=== PATIENT | male | born 1945 | race Caucasian/White ===

== ENCOUNTER 2024-11-02 15:18 | Emergency (ER) | payer MEDICARE, SELFPAY ==
--- NOTE | ~2024-11-02 | XR_ITS ---
EXAMINATION: XR HAND 3 OR MORE VIEWS LEFT HISTORY: trauma COMPARISON: There are no prior studies available for comparison. FINDINGS: Three views of the left hand are submitted. Osseous mineralization is normal. There is a fracture of the distal tuft of the middle finger with overlying soft tissue injury. The remaining bones are intact. The joint spaces are maintained. XR/XR hand LT min 3V IMPRESSION: Fracture of the distal tuft of the middle finger with overlying soft tissue injury. Electronically signed by: Darion Serrano MD 11/02/2024 03:58 PM EDT
[2024-11-02 15:29] VITALS: BP 114/48; PULSE 63; RESP 18; TEMP 36.6; O2SAT 98; BMI 27.1
--- NOTE | 2024-11-02 15:34 | ED_ITS ---
HPI - General Adult General Chief complaint: Wound/Laceration Stated complaint: Finger lac Time Seen by Provider: 11/02/24 22:02 Source: patient Limitations: no limitations History of Present Illness ED Provider: Brandy Kinney PA-C HPI narrative: 79-year-old male presents with left 3rd finger laceration. Patient states he was using a table saw and subsequently lacerated the tip of his finger. He also sustained a laceration to the 4th digit on the same hand. Neurovascularly intact. Related Data Home Medications ?Medication ?Instructions ?Recorded ?Confirmed allopurinol 100 mg tablet 100 mg PO DAILY 11/09/24 amlodipine 2.5 mg tablet 2.5 mg PO DAILY 11/09/24 budesonide-formoterol HFA 160 inhalation 11/09/24 mcg-4.5 mcg/actuation aerosol inhaler (Symbicort) duloxetine 60 mg capsule,delayed 60 mg PO DAILY 11/09/24 release ergocalciferol (vitamin D2) 1,250 2,500 mcg PO QWEEK 11/09/24 mcg (50,000 unit) capsule fluticasone propionate 50 intranasal 11/09/24 mcg/actuation nasal spray,suspension ketoconazole 2 % topical cream 1 appl topical 11/09/24 momelotinib 200 mg tablet (Ojjaara) 200 mg PO DAILY 11/09/24 pantoprazole 40 mg tablet,delayed 40 mg PO DAILY 11/09/24 release valsartan 160 mg tablet 160 mg PO DAILY 11/09/24 vonoprazan 20 mg tablet (Voquezna) 20 mg PO DAILY 11/09/24 Allergies Allergy/AdvReac Type Severity Reaction Status Date / Time No Known Allergies Allergy Verified 11/15/24 14:05 Review of Systems Review of Systems: Yes all other systems are reviewed and are negative Constitutional: Constitutional: Denies fatigue and Denies fever(s) Integumentary/Breasts: Skin/Breast: Reports wounds Endocrine: Endocrine: Denies fatigue PMFSH Past Medical History Attestation statement: The following information was validated with the patient. 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 Physical Exam ED Vital Signs: Vital Signs - 24 hr 11/02/24 15:29 11/02/24 22:21 Temperature 98 F 97.2 F Pulse Rate 63 68 Respiratory Rate 18 16 Blood Pressure 114/48 L 133/56 L Pulse Oximetry 98 99 BMI result Body Mass Index 27.1 Const Other: Alert Orientation/consciousness: patient oriented x3 Resp Effort & Inspection: normal respiratory effort Cardio Other: Normal peripheral perfusion Skin Other: Warm dry no rash Neuro General: patient oriented x3, gait normal, no focal motor deficits and CN's II- XI intact bilaterally Extrem Other: Crush injury to superior aspect of the left 3rd digit, expanding across the nail is irregular and macerated tissue. Minimally bleeding. Second laceration noted to 2nd digit over the pad, minimally bleeding is linear. Psych Other: Cooperative Course Course Course Narrative: RME, this is a rapid medical exam performed by Howard Munoz please refer to primary provider for complete H&P- 79 year old male presents for evaluation of left 3rd finger laceration from a table saw. He is unsure of his last tetanus but is attempting to find out from his PCP. Plan for x-rays to rule out osseous injury.He has a 3cm laceration/ avulsion to the tip of the 3rd finger. A smaller 1cm laceration to 2nd digit. Medications Administered Discontinued Medications Generic Name Dose Route Start Last Admin Trade Name Freq PRN Reason Stop Dose Admin Cephalexin HCl 500 mg 11/03/24 00:14 11/03/24 00:32 Cephalexin 500 Mg Capsule PO 11/03/24 00:15 500 mg ONCE ONE Administration Lidocaine HCl 30 ml 11/02/24 22:53 11/02/24 23:01 Lidocaine Hcl 1 % 10 Ml Vial INFILTRATI 11/02/24 22:54 30 ml ONCE ONE Administration Procedures Laceration Laceration 1: Site: hand Side (If applicable): left Size (cm): 2 Description: irregular and contaminated Depth: simple, single layer Local Anesthetic: lidocaine 1% Amount of anesthesia used (mL): 3 Pre-repair: irrigated extensively Skin layer closed with: nylon Size (cm): 5-0 Number of sutures: 7 Technique: simple, interrupted Laceration 2: Site: hand Side (If applicable): left Size (cm): 1 Description: linear Depth: simple, single layer Local Anesthetic: lidocaine 1% Amount of anesthesia used (mL): 3 Pre-repair: irrigated extensively Skin layer closed with: nylon Size (cm): 5-0 Number of sutures: 3 Technique: simple, interrupted Medical Decision Making Medical Decision Making MDM Narrative: 79-year-old male presents with left 3rd finger laceration. Patient states he was using a table saw and subsequently lacerated the tip of his finger. He also sustained a laceration to the 4th digit on the same hand. Neurovascularly in tact. No relevant chronic issues History: Per patient I have considered the following differential diagnoses: Fracture, dislocation, crush injury, laceration Plan: The lacerations will require repair, x-ray obtained of the finger there was a tuft fracture, is an open fracture we will place on antibiotics and update the tetanus. I have independently reviewed the following tests: X-ray left hand: XR/XR hand LT min 3V IMPRESSION: Fracture of the distal tuft of the middle finger with overlying soft tissue injury. Discharge Plan Discharge Clinical Impression: Laceration, Open fracture of tuft of distal phalanx of finger Patient Disposition: Home, Self-Care Instructions: Finger Fracture (ED), Finger Laceration (ED) Additional Instructions: You sustained a tuft fracture of the left 3rd digit, with an associated laceration. You also sustained a laceration of the 4th left digit. See home care instructions. The sutures can be removed in 7 days, you can return to the emergency department for removal or go to your primary care provider. Take the cephalexin as directed, the fracture you sustained is considered an open fracture. Call the hand surgeon for follow up, call tomorrow to make an appointment. Watch for signs of infection which would include redness, swelling, pus draining from either site or fever. Prescriptions: No Action valsartan 160 mg tablet 160 mg PO DAILY budesonide-formoterol [Symbicort] 160-4.5 mcg/actuation HFA aerosol inhaler inhalation Voquezna 20 mg tablet 20 mg PO DAILY ergocalciferol (vitamin D2) 1,250 mcg (50,000 unit) capsule 2,500 mcg PO QWEEK Ojjaara 200 mg tablet 200 mg PO DAILY amlodipine 2.5 mg tablet 2.5 mg PO DAILY ketoconazole 2 % cream 1 appl topical duloxetine 60 mg capsule,delayed release(DR/EC) 60 mg PO DAILY allopurinol 100 mg tablet 100 mg PO DAILY pantoprazole 40 mg tablet,delayed release (DR/EC) 40 mg PO DAILY fluticasone propionate 50 mcg/actuation spray,suspension intranasal Referrals: Gricelda Jaime MD [Physician] - (open tuft fx left finger) Interventions: ED Discharge Assessment Last Done: 11/03/24 00:35 Discharge Date/Time: 11/03/24 00:35 Print Language: Croatian
[2024-11-02 22:21] VITALS: BP 133/56; PULSE 68; RESP 16; TEMP 36.2; O2SAT 99
[2024-11-02] MEDS: Lidocaine HCl 1 % 10 ML VIAL 30 ML INFILTRATI (23:01)
[2024-11-03 00:27] VITALS: BP 130/54; PULSE 70; RESP 18; TEMP 36.8; O2SAT 96
[2024-11-03] MEDS: cephALEXin 500 MG CAPSULE PO (00:32)
[2024-11-03 00:35] VITALS: BP 130/54; PULSE 70; RESP 18; TEMP 36.8; O2SAT 96
== END 2024-11-03 00:35 | disposition home or self-care (01) ==
PROVIDERS: Emergency Provider Emergency Medicine Emergency Medical Services; PCP Family Medicine
DX: S61.213A Laceration without foreign body of left middle finger without damage to nail, initial encounter (principal); S62.633A Displaced fracture of distal phalanx of left middle finger, initial encounter for closed fracture; M79.642 Pain in left hand; W31.2XXA Contact with powered woodworking and forming machines, initial encounter; Y93.9 Activity, unspecified; Y92.9 Unspecified place or not applicable; Y99.8 Other external cause status; Z79.899 Other long term (current) drug therapy
CPT/HCPCS: 12042; 73130; 99284; J2003

== ENCOUNTER → 2024-11-02 15:35 | Outpatient (BNV) | payer SELFPAY | PROVIDERS: PCP Family Medicine; Visit Provider Radiology Diagnostic Radiology | DX: S62.633B Displaced fracture of distal phalanx of left middle finger, initial encounter for open fracture (principal) | CPT/HCPCS: 73130 ==

== ENCOUNTER 2024-11-08 09:44 | Outpatient (REF) | payer MEDICARE, SELFPAY | END 2024-11-08 09:45 | disposition home or self-care (01) | LOC: HO.HOSX 09:44 | PROVIDERS: Visit Provider Orthopaedic Surgery | DX: Z13.89 Encounter for screening for other disorder (principal) ==

== ENCOUNTER 2024-11-09 09:32 | Outpatient (AMB) | payer MEDICARE, SELFPAY ==
--- NOTE | 2024-11-09 09:52 | A.OFFVIS_ITS ---
Vital Signs 11/09/24 10:00 Height 5 ft 6 in Weight 156 lb BMI 25.2 Intake Visit Reasons: FC-tuft fracture of the left 3rd digit, LT-11/02/24 Intake Note: Jus is a 79 year old right hand dominant male who resents today as a new patient for a fracture care visit for his left 3rd finger s/p cutting it with a table saw DOI: 11/02/24 Per ED note patient has a 3 cm laceration/avulsion to the tip of the 3rd left finger and a small laceration to the left 2nd finger as well. Right hand X-Ray done at [facility] on 11/02/24 IMPRESSION: Fracture of the distal tuft of the middle finger with overlying soft tissue injury. He received 12 sutures, splinted and referred to orthopedic. Currently states he has pain if he bangs it against any surface. Hx of a tendon rupture on his DIP of left middle finger about 3 yrs ago. He is having a little tingling in his middle finger that he did not have before. Allergies No Known Allergies Allergy (Verified 11/09/24 09:56) HPI HPI FC-tuft fracture of the left 3rd digit, LT-11/02/24: Details: Jus is a 79 year old right hand dominant man who presents for a left middle finger laceration & fracture, from a table saw injury, DOI: 11/02/24. He was seen in the ED where this was sutured, and given Abx. He complains of pain in his finger, primarily when bumped against a surface. He also complains of some new tingling in his middle finger, which began following his injury. He reports having a middle finger tendon rupture in ~2021. He says he is immunocompromised, with a Hx of BCC & prostate cancer. 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 Review of Systems Const All systems reviewed & are unremarkable except as noted in HPI and below Physical Exam Vital Signs: BMI result Body Mass Index 25.2 Const General: cooperative, healthy appearing and no acute distress Orientation/consciousness: patient oriented x3 HEENT Head: Yes normocephalic and Yes atraumatic Eyes EOM: EOMs intact bilaterally Resp Effort & Inspection: normal respiratory effort and able to speak in complete sentences Cardio Jugular venous distension: no JVD Skin General skin exam: turgor normal Rashes: no rashes Neuro General: patient oriented x3 Extrem Other: Evaluation of Left Upper Extremity: The patient is alert, oriented, and in no acute distress Table saw injury to the ulnar tip of the left middle finger. He is missing some of the distal and ulnar aspect of the nail plate and presumably the nail bed. The wound is sutured closed and appears to be covering the end of the finger, though there is a significant amount of dried blood as well. Regarding the left index finger he has a 1.2 cm transverse laceration at the tip of the index finger. No nail involvement Cap refill appears to be brisk. He had some mild stiffness, but was able to bring his fingers close to a fist and back into extension in clinic. He does have an old mallet deformity to the middle finger. This is not something caused by this injury. Radiographs: 3 views of the left hand were taken and viewed by me today in clinic. They show a fracture with loss of the ulnar aspect of the tuft of the left middle finger distal phalanx. I do not see any bony involvement of the tip of the index finger. Psych Appearance: grossly normal Affect: normal affect Attitude: cooperative Office Procedures AMB Fracture Care Details: Fracture care distal phalanx [id number] Fracture Billing Code: Fracture Billing Code Assessment & Plan Assessment & Plan (1) Open fracture of distal phalanx of left middle finger: Code(s): S62.633B - Displaced fracture of distal phalanx of left middle finger, initial encounter for open fracture Category: Medical (2) Laceration of left middle finger: Code(s): S61.213A - Laceration without foreign body of left middle finger without damage to nail, initial encounter Category: Medical (3) Laceration of left index finger: Code(s): S61.211A - Laceration without foreign body of left index finger without damage to nail, initial encounter Category: Medical Plan Assessment & Plan: 1. Left middle finger distal phalanx ulnar tuft fracture, open From a tablesaw injury, DOI: 11/02/24 Sutured in ED same day 2. Left index fingertip laceration, From a tablesaw injury, DOI: 11/02/24 Sutured in ED same day I educated him about these conditions I discussed operative and non-operative treatment options I recommend we manage this non-operatively, and he is in agreement. If he does not develop full soft tissue coverage at his middle fingertip, he may require surgery. He expressed understanding Finish his antibiotics. I explained the signs and symptoms of infection, if the patient develops any new or worsening erythema, drainage, pain, or warmth they should contact the clinic or attend the ED. I discussed wound care, he can clean his injuries with 1/2 strength Hydrogen peroxide & water, and apply a small amount of topical Abx. He can start washing the wounds in the shower with soap and water on Thursday. He will perform gentle ROM exercises at home He should avoid any underwater activities at this time Follow up next week with for a wound check and possible removal of a some sutures, particularly from the index finger. Most sutures in the middle finger should stay in place until almost 3 weeks. Follow up with me in 2 weeks for a wound check, and likely removal of remaining sutures Scribed for Gricelda Jaime MD by Armando Perez, medical laboratory scientist, on 11/09/24 at 10:00 AM, EST. Orders: Orders XR hand LT min 3V Today M79.642 - Pain in left hand Coding Level of Care Code New Pt Level 4 (82041) Diagnoses Open fracture of distal phalanx of left middle finger S62.633B Laceration of left middle finger S61.213A Laceration of left index finger S61.211A CPT Codes Fracture Care - Fracture Billing Code: Fracture Billing Code ([id number])
[2024-11-09 10:00] VITALS: BMI 25.2
== END 2024-11-09 10:41 | disposition home or self-care (01) ==
LOC: HO.HOS 09:32
PROVIDERS: PCP Family Medicine; Visit Provider Orthopaedic Surgery
DX: S62.633B Displaced fracture of distal phalanx of left middle finger, initial encounter for open fracture (principal); S61.213A Laceration without foreign body of left middle finger without damage to nail, initial encounter; S61.211A Laceration without foreign body of left index finger without damage to nail, initial encounter
CPT/HCPCS: 99203

== ENCOUNTER → 2024-11-09 09:40 | Outpatient (BNV) | payer MEDICARE, SELFPAY | PROVIDERS: Visit Provider Radiology Diagnostic Radiology | DX: S62.633A Displaced fracture of distal phalanx of left middle finger, initial encounter for closed fracture (principal) | CPT/HCPCS: 73130 ==

== ENCOUNTER 2024-11-09 12:05 | Outpatient (REF) | payer MEDICARE, SELFPAY ==
--- NOTE | ~2024-11-09 | XR_ITS ---
EXAMINATION: XR HAND 3 OR MORE VIEWS LEFT HISTORY: M79.642 - Pain in left hand COMPARISON: Comparison is made with the prior examination dated 11/02/2024. FINDINGS: Four views of the left hand are submitted. Osseous mineralization is normal. Again seen is a fracture of the distal tuft of the middle finger. There is been no significant change from the prior study. The joint spaces are preserved. The soft tissues are unremarkable. XR/XR hand LT min 3V IMPRESSION: Fracture of the distal tuft of the middle finger. Electronically signed by: Darion Serrano MD 11/09/2024 12:36 PM EDT
== END 2024-11-09 12:06 | disposition home or self-care (01) ==
LOC: HO.HOSX 12:05
PROVIDERS: Visit Provider Orthopaedic Surgery
DX: S62.633B Displaced fracture of distal phalanx of left middle finger, initial encounter for open fracture (principal); W27.0XXD Contact with workbench tool, subsequent encounter
CPT/HCPCS: 26750; 73130; 99202

== ENCOUNTER 2024-11-15 13:57 | Outpatient (AMB) | payer MEDICARE, SELFPAY ==
--- NOTE | 2024-11-15 14:02 | MHC.OFFVIS ---
Vital Signs 11/15/24 14:04 Height 5 ft 6 in Weight 156 lb BMI 25.2 Handedness Right Intake Visit Reasons: OV- Left MF fx, LT IF lac DOI 11/02/24 Intake Note: Jus is a 79 year old right hand dominant male who presents today for a follow up and wound check for his open fracture of distal phalanx of left middle finger, laceration of left middle and left index finger s/p table saw injury DOI: 11/02/24. Patient reports he has pain if he bumps his fingers but other wolfe they feel okay. Expresses mild numbness at the tip of his index and middle finger. His middle finger appears white around his incison. Allergies No Known Allergies Allergy (Verified 11/15/24 14:05) HPI HPI OV- Left MF fx, LT IF lac DOI 11/02/24: Details: Jus is a 79 year old right hand dominant male who presents today for a follow up and wound check for his open fracture of distal phalanx of left middle finger, laceration of left middle and left index finger s/p table saw injury DOI: 11/02/24. Patient reports he has pain if he bumps his fingers but other wolfe they feel okay. Expresses mild numbness at the tip of his index and middle finger. His middle finger appears white around his incison. 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 Review of Systems Const All systems reviewed & are unremarkable except as noted in HPI and below Physical Exam Vital Signs: BMI result Body Mass Index 25.2 Const General: cooperative, healthy appearing and no acute distress Orientation/consciousness: patient oriented x3 HEENT Head: Yes normocephalic and Yes atraumatic Eyes EOM: EOMs intact bilaterally Resp Effort & Inspection: normal respiratory effort and able to speak in complete sentences Cardio Jugular venous distension: no JVD Skin General skin exam: turgor normal Rashes: no rashes Neuro General: patient oriented x3 Extrem Other: Evaluation of Left Upper Extremity: The patient is alert, oriented, and in no acute distress Table saw injury to the ulnar tip of the left middle finger. He is missing some of the distal and ulnar aspect of the nail plate and presumably the nail bed. The wound is sutured closed and appears to be covering the end of the finger, though there is a significant amount of dried blood as well. Regarding the left index finger he has a 1.2 cm transverse laceration at the tip of the index finger. No nail involvement Cap refill appears to be brisk. He had some mild stiffness, but was able to bring his fingers close to a fist and back into extension in clinic. He does have an old mallet deformity to the middle finger. This is not something caused by this injury. Psych Appearance: grossly normal Affect: normal affect Attitude: cooperative Assessment & Plan Assessment & Plan (1) Open fracture of distal phalanx of left middle finger: Code(s): S62.633B - Displaced fracture of distal phalanx of left middle finger, initial encounter for open fracture Category: Medical (2) Laceration of left middle finger: Code(s): S61.213A - Laceration without foreign body of left middle finger without damage to nail, initial encounter Category: Medical (3) Laceration of left index finger: Code(s): S61.211A - Laceration without foreign body of left index finger without damage to nail, initial encounter Category: Medical Plan Assessment & Plan: 1. Left middle finger distal phalanx ulnar tuft fracture, open From a tablesaw injury, DOI: 11/02/24 Sutured in ED same day 2. Left index fingertip laceration, From a tablesaw injury, DOI: 11/02/24 Sutured in ED same day I educated him about these conditions I discussed operative and non-operative treatment options I recommend we manage this non-operatively, and he is in agreement. If he does not develop full soft tissue coverage at his middle fingertip, he may require surgery. He expressed understanding Finish his antibiotics. I explained the signs and symptoms of infection, if the patient develops any new or worsening erythema, drainage, pain, or warmth they should contact the clinic or attend the ED. I discussed wound care, he can continue washing with soap and water in the sink or the shower, but no submerging He will perform gentle ROM exercises at home He should avoid any underwater activities at this time All but 1 suture removed from the index finger, anticipate suture removal at next week's appointment of the suture and the sutures of the middle finger Coding Level of Care Code Est Pt Level 3 (00318) Diagnoses Open fracture of distal phalanx of left middle finger S62.633B Laceration of left middle finger S61.213A Laceration of left index finger S61.211A
[2024-11-15 14:04] VITALS: BMI 25.2
== END 2024-11-15 14:46 | disposition home or self-care (01) ==
LOC: HO.HOS 13:57
PROVIDERS: PCP Family Medicine
DX: S62.633B Displaced fracture of distal phalanx of left middle finger, initial encounter for open fracture (principal); S61.213A Laceration without foreign body of left middle finger without damage to nail, initial encounter; S61.211A Laceration without foreign body of left index finger without damage to nail, initial encounter
CPT/HCPCS: 99213

== ENCOUNTER → 2024-11-15 13:57 | Outpatient (BNVA) | payer MEDICARE, SELFPAY | PROVIDERS: PCP Family Medicine | DX: S62.633D Displaced fracture of distal phalanx of left middle finger, subsequent encounter for fracture with routine healing (principal); S61.213D Laceration without foreign body of left middle finger without damage to nail, subsequent encounter; S61.211D Laceration without foreign body of left index finger without damage to nail, subsequent encounter | CPT/HCPCS: 99212 ==

== ENCOUNTER 2024-11-22 14:06 | Outpatient (REF) | payer MEDICARE, SELFPAY ==
--- NOTE | ~2024-11-22 | XR_ITS ---
EXAMINATION: XR HAND, LEFT CLINICAL INFORMATION: M79.642 - Pain in left hand COMPARISON: 11/09/2024, 11/02/2024. TECHNIQUE: PA, lateral, and oblique views of the left hand. FINDINGS: Bandaging material overlies the second and third digits distally. Redemonstration of an avulsion fracture of the distal tuft of the third digit, distal phalanx. Appearance is unchanged. No additional fractures or focal bony abnormalities. 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 Mild joint space narrowing second MCP joint. Negative ulnar variance noted. Soft tissues otherwise normal. XR/XR hand LT min 3V IMPRESSION: No significant change in the distal tuft fracture of the third digit. Electronically signed by: Markus Purcell MD 11/23/2024 12:32 PM EDT
--- OUTSIDE RECORDS SUMMARY | 2024-11-22 16:54 | XMS_ITS | Encounter Summary ---
Author Organization [facility], Address [address] [place] [address] Phone Care Team Providers Care Stone Cleaner Name Role Phone Crystal Lowry MD Primary Care Provider [phone] Encounter Details Date Type Department Care Team (Late st Contact Info) Description 04/28/2024 Documentation Only [facility], [address] [place] [phone] Juan Diego [place], [place] [address] [place] [phone] Social History Tobacco Use Types Packs/Day Years Used Date Smoking Tobacco: Never Assessed Sex and Gender Information Value Date Recorded Sex Assigned at Male 07/29/2024 3:22 PM EST Legal Sex Male 11:37 AM EDT Gender Identity Male 07/29/2024 3:22 PM EST Sexual Orientation Not on file documented as of this encounter Plan of Treatment Not on file documented as of this encounter Visit Diagnoses Not on filedocumented in this encounter Care Teams Stone Cleaner Relationship Specialty Start Date End Date Crystal Lowry MD [address] [place] [phone] PCP - General Family Medicine 04/28/24 documented as of this encounter
--- OUTSIDE RECORDS SUMMARY | 2024-11-22 16:54 | XMS_ITS | Clinical Summary ---
Author Organization [facility], Address [address]HA[address] [place] [phone] Phone Care Team Providers Care Associate Civil Engineer Name Role Phone Crystal Lowry MD Primary Care Provider Allergies No known active allergies Medications allopurinol (ZYLOPRIM) 100 MG tablet Take 100 mg by mouth 1 (one) time each day Active amLODIPine (NORVASC) 2.5 MG tablet Take 2.5 mg by mouth 1 (one) time each day Active ARIPiprazole (ABILIFY) 5 MG tablet Take 1 tablet by mouth in the morning. 4 Active DULoxetine (CYMBALTA) [address] capsule TAKE 1 CAPSULE BY MOUTH EVERY DAY WITH 60MG FOR TOTAL 90MG 4 Active Docusate Sodium (DSS) 100 MG capsule Take 200 mg by mouth in the morning. Active DULoxetine (CYMBALTA) [address] capsule TAKE 1 CAPSULE BY MOUTH EVERY DAY TAKE ALONG WITH THE 30 MG CAP 4 Active ergocalciferol 1.25 MG (84120 UT) capsule TAKE 2 CAPSULES BY MOUTH WEEKLY 4 Active Momelotinib Dihydrochloride 200 MG tablet Take 1 tablet by mouth in the morning. 4 Active Active Problems Problem Noted Date Diagnosed Date Stage 3a chronic kidney disease 08/05/2024 Essential hypertension 04/07/2023 Overview (08/05/2024): Last Assessment & Plan: Hemodynamically stable. Continue home medications. Social History Tobacco Use Types Packs/Day Years Used Date Smoking Tobacco: Never Assessed Sex and Gender Information Value Date Recorded Sex Assigned at Male 07/29/2024 3:22 PM EST Legal Sex Male 11:37 AM EDT Gender Identity Male 07/29/2024 3:22 PM EST Sexual Orientation Not on file Plan of Treatment Health Maintenance Due Date Last Done Comments Influenza Vaccine (#1) 2024 05/05/2019 Pneumococcal Vaccine: 65+ Years Completed 03/05/2020, 01/27/2016, 09/15/2013, Additional history exists Hepatitis B Vaccine Aged Out No longe r eligible based on patient's age to complete this topic Insurance [facility] Care Teams Associate Civil Engineer Relationship Specialty Start Date End Date Crystal Lowry MD [address] [place] [phone] PCP - General Family Medicine 04/28/24
--- OUTSIDE RECORDS SUMMARY | 2024-11-22 16:54 | XMS_ITS | Encounter Summary ---
Author Organization [facility], Address [address] [place] [address] Phone Care Team Providers Care Glass Grinder Name Role Phone Crystal Lowry MD Primary Care Provider [phone] Encounter Details Date Type Department Care Team (Late st Contact Info) Description 08/05/2024 Documentation Only [facility], [address] [place] [phone] Shelli Trevino [address] [place] [phone] Social History Tobacco Use Types Packs/Day Years [...] on filedocumented in this encounter Care Teams Glass Grinder Relationship Specialty Start Date End Date Crystal Lowry MD [address] [place] [phone] PCP - General Family Medicine 04/28/24 documented as of this encounter
== END 2024-11-22 14:07 | disposition home or self-care (01) ==
LOC: HO.HOSX 14:06
DX: M79.642 Pain in left hand (principal); S62.633D Displaced fracture of distal phalanx of left middle finger, subsequent encounter for fracture with routine healing
CPT/HCPCS: 73130; 99212

== ENCOUNTER 2024-11-22 14:11 | Outpatient (AMB) | payer MEDICARE, SELFPAY ==
--- NOTE | 2024-11-22 14:16 | A.OFFVIS_ITS ---
Vital Signs 11/22/24 14:24 Height 5 ft 6 in Weight 156 lb BMI 25.2 Handedness Right Intake Visit Reasons: OV- Left MF fx, LT IF lac DOI 11/02/24 Intake Note: Jus is a 79 year old right hand dominant male who presents today for a follow up and wound check for his open fracture of distal phalanx of left middle finger, laceration of left middle and left index finger s/p table saw injury DOI: 11/02/24. Patient reports his fingers have been feeling a little better however the tips are fourdrinier machine tender. He has been doing his daily dressings and states he had no complications with this. He says if he brushes against his finger he feels some tingling. Left middle finger appears macerated. Allergies No Known Allergies Allergy (Verified 11/22/24 14:23) HPI HPI OV- Left MF fx, LT IF lac DOI 11/02/24: Details: Jus is a 79 year old right hand dominant male who presents today for a follow up and wound check for his open fracture of distal phalanx of left middle finger, laceration of left middle and left index finger s/p table saw injury DOI: 11/02/24. Patient reports his fingers have been feeling a little better however the tips are fourdrinier machine tender. He has been doing his daily dressings and states he had no complications with this. He says if he brushes against his finger he feels some tingling. Left middle finger appears macerated. 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 Review of Systems Const All systems reviewed & are unremarkable except as noted in HPI and below Physical Exam Vital Signs: BMI result Body Mass Index 25.2 Const General: cooperative, healthy appearing and no acute distress Orientation/consciousness: patient oriented x3 HEENT Head: Yes normocephalic and Yes atraumatic Eyes EOM: EOMs intact bilaterally Resp Effort & Inspection: normal respiratory effort and able to speak in complete sentences Cardio Jugular venous distension: no JVD Skin General skin exam: turgor normal Rashes: no rashes Neuro General: patient oriented x3 Extrem Other: Evaluation of Left Upper Extremity: The patient is alert, oriented, and in no acute distress Table saw injury to the ulnar tip of the left middle finger. He is missing some of the distal and ulnar aspect of the nail plate and presumably the nail bed. The wound is sutured closed and appears to be covering the end of the finger, despite slight maceration Regarding the left index finger he has a 1.2 cm transverse laceration at the tip of the index finger. No nail involvement Cap refill appears to be brisk. He had some mild stiffness, but was able to bring his fingers close to a fist and back into extension in clinic. He does have an old mallet deformity to the middle finger. This is not something caused by this injury. Psych Appearance: grossly normal Affect: normal affect Attitude: cooperative Assessment & Plan Assessment & Plan (1) Open fracture of distal phalanx of left middle finger: Code(s): S62.633B - Displaced fracture of distal phalanx of left middle finger, initial encounter for open fracture Category: Medical (2) Laceration of left middle finger: Code(s): S61.213A - Laceration without foreign body of left middle finger without damage to nail, initial encounter Category: Medical (3) Laceration of left index finger: Code(s): S61.211A - Laceration without foreign body of left index finger without damage to nail, initial encounter Category: Medical Plan Assessment & Plan: 1. Left middle finger distal phalanx ulnar tuft fracture, open From a tablesaw injury, DOI: 11/02/24 Sutured in ED same day 2. Left index fingertip laceration, From a tablesaw injury, DOI: 11/02/24 Sutured in ED same day I educated him about these conditions I discussed operative and non-operative treatment options I recommend we manage this non-operatively, and he is in agreement. If he does not develop full soft tissue coverage at his middle fingertip, he may require surgery. He expressed understanding I explained the signs and symptoms of infection, if the patient develops any new or worsening erythema, drainage, pain, or warmth they should contact the clinic or attend the ED. I discussed wound care, he can continue washing with soap and water in the sink or the shower, but no submerging He will perform gentle ROM exercises at home He should avoid any underwater activities at this time Sutures removed today Follow-up in 2 weeks for reassessment, sooner with any acute concerns Orders: Orders XR hand LT min 3V 11/22/24 M79.642 - Pain in left hand Coding Level of Care Code Global (89888) Diagnoses Open fracture of distal phalanx of left middle finger S62.633B Laceration of left middle finger S61.213A Laceration of left index finger S61.211A
[2024-11-22 14:24] VITALS: BMI 25.2
--- OUTSIDE RECORDS SUMMARY | 2024-11-22 16:59 | XMS_ITS | Clinical Summary ---
Author Organization [facility] Address [address] [place] [address] Care Team Providers Care Spray Drier Operator Name Role Phone Unavailable Primary Care Provider Unavailabl e Source Comments Please note that some or all of the patient's information could have additional privacy protections. State laws allow health care providers to render certain types of treatment to minors without parental consent. Please do not assume that this information can be shared solely by obtaining just the consent of the patient's parent/guardian. Please determine if all or part of the patient's care was rendered without parent/guardian involvement. And, if so, obtain the minor's consent prior to disclosure.[facility] Immunizations Immunization Administration Dates Next Due Moderna Sars-cov-2 Vaccination 11/09/2020 Social History Tobacco Use Types Packs/Day Years Used Date Smoking Tobacco: Never Assessed Sex and Gender Information Value Date Recorded Sex Assigned at Not on file Legal Sex Male 8:24 AM EDT Gender Identity Not on file Sexual Orientation Not on file Plan of Treatment Health Maintenance Due Date Last Done Comments DTaP/TDAP/TD VACCINES (1 - Tdap) 1952 ADOLESCENT HIV SCREENING 1958 COVID-19 Vaccine (2 - 2023-2 5 season) 2024 11/09/2020 INFLUENZA (#1) 2024 NIRSEVIMAB VACCINES UNDER 8 MONTHS Aged Out No longer eligible b ased on patient's age to complete this topic Insurance BLUE CROSS PART A AND B
--- OUTSIDE RECORDS SUMMARY | 2024-11-22 17:00 | XMS_ITS | Data Portability ---
Author Organization [place] [facility], Allergy Address [address] [address] Care Team Providers Care Sales/Marketing Name Role Phone DOMINGUEZANTONIO Primary Care Provider Assessment Encounter Date Assessment Date Assessment LastModified by Organization Details LastModified Time 10/18/2024 10/18/2024 79-year-old male presents for evaluation of right otalgia. Otologic exam demonstrates right external auditory canal is erythematous with purulent otorrhea, suctioned today. Right TM is generally thickened with loss of landmarks. Recommend topical CiproDex twice daily for 14 days. Reviewed drop administration and water precautions. Will send intranasal ipratropium bromide for his chronic anterior rhinorrhea, as this has been beneficial in the past. Patient will return for revaluation in 2-3 weeks to assess for infection resolution. Patient agrees with plan. 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 He reports symptoms resolved with CiproDex. Otologic exam demonstrates TMs are intact with well-aerated middle ear spaces. External auditory canals are without purulence or edema. Recommend follow up for annual audiometric testing, sooner with concerns. [email or web address] Not available 11/04/2024 09:27:37 Plan of Treatment Reminders Order Date Submit Date Provider Last Modified By Organization Details Last Modified Time Details Appointments None recorded. Lab None recorded. Referral None recorded. Procedures None recorded. Surgeries None recorded. Imaging None recorded. Medication Orders ciprofloxac in 0.3 %-dexametha sone 0.1 % ear drops,suspe nsion 2024 025 [facility][id number], [address] [place], [address], 5 11:24:31 ipratropium bromide 21 mcg (0.03 %) nasal spray 2024 025 [id number], [address] [place], [address], 5 11:24:31 Patient TargetsNo targets recorded. Patient InstructionsNo instructions recorded. Reason for Referral None Reported. Problems Name Problem SNOMED Code Status Onset Date Resolution Date Notes Provider Name and Address Organization Details Recorded Time Impacted cerumen of bilateral ears 79920105199 58442 Active 2020 Impacted cerumen, bilateral ; Note: Date Diagnosed : 11/13/2020 2:37 PM (H61.23) Not Available [facility] 4 03:21:55 Sensorine ural hearing loss of bilateral ears 207723599 Active 2020 Sensorine ural hearing loss, bilateral ; Note: Date Diagnosed : 11/13/2020 2:37 PM (H90.3) Not Available [facility] 4 03:21:55 Acute infective otitis externa 871730984 Active 2024 JOSEY GALLO PA-C [address] [facility],[place] [address], [place], [phone] , [place] [facility] 5 11:22:43 Anterior rhinorrhe a 785683923 Active 2024 JOSEY GALLO PA-C [address] [facility] [address], [place], [phone] , [place] [facility] [place] [facility] 5 11:23:51 Vasomotor rhinitis 6257022 Active 2024 JOSEY GALLO PA-C [address] [facility] [address], [place], [phone] , [place] - [facility] [place] [facility] 5 11:24:02 Chronic rhinitis 71723113 Active 2024 JOSEY GALLO PA-C [address] [place] [address], [place], [phone] , [place] [facility] 11:24:02 Problem Notes None recorded. Medical Equipment None Reported. Allergies No known drug allergies Medications Name Sig Start Date Stop Date Status Note LastModified by Organization Details LastModified Time acetamino phen 325 mg tablet 10/17 completed Medicati on ID: [id number] B rand Name: acetamin ophen Se nd Method: E-Prescr ibed Sub s Allowed: subs OK Speci al Instruct ion: TAKE 2 TABLETS BY MOUTH EVERY 6 HOURS NEEDED FOR PAIN Med icationG enericNa me: acetamin ophen Not Available Not Available Not Available prednison e 10 mg tablet TAKE 1 TABLET BY MOUTH VERY 48 HOURS WITH FOOD 10/18 completed Not Available Not Available Not Available doxycycli ne hyclate 100 mg capsule TAKE ONE PILL TWICE DAILY WITH FOOD AND WATER X 5 DAYS. 10/18 completed Not Available Not Available Not Available sucralfat e 1 gram tablet TAKE 1 TABLET BY MOUTH ON AN EMPTY STOMACH 2-4 TIMES DAILY NEEDED 11/03 completed Not Available Not Available Not Available fluoroura cil 5 % topical cream 10/17 completed Medicati on ID: [id number] B rand Name: fluorour acil Sen d Method: E-Prescr ibed Sub s Allowed: subs OK Speci al Instruct ion: APPLY TO AFFECTED AREA TWICE A DAY FOR 14 21 DAYS, WASH HANDS AFTER APPLYING Medicat ionGener icName: fluorour acil Not Available Not Available Not Available amlodipin e 2.5 mg tablet 2.5 mg every 24 hours by oral route. active Not Available Not Available No t Available allopurin ol 100 mg tablet TAKE 1 TABLET BY MOUTH EVERY DAY active Not Available Not Available No t Available magnesium oxide 400 mg (241.3 mg magnesium ) tablet TAKE 1 TABLET BY MOUTH EVERY DAY 11/03 completed Not Available Not Available Not Available pravastat in 10 mg tablet 10 mg every 24 hours by oral route. active Not Available Not Available No t Available clindamyc in 1 % topical gel 10/18 completed Medicati on ID: [id number] B rand Name: clindamy pedro phosphat e Send Method: E-Prescr ibed Sub s Allowed: subs OK Speci al Instruct ion: APPLY THIN FILM TO FACE ONCE DAILY Me dication GenericN harpreet: clindamy pedro phosphat e Not Available Not Available Not Available cephalexi n 500 mg capsule active Not Available Not Available Not Available pantopraz ole 40 mg tablet,de layed release TAKE 1 TABLET BY MOUTH EVERY MORNING 10/17 completed Not Available Not Available Not Available cephalexi n 500 mg tablet 500 mg every 6 hours by oral route. active Not Available Not Available No t Available gabapenti n 100 mg capsule 10/17 completed Medicati on ID: [id number] B rand Name: gabapent in Send Method: E-Prescr ibed Sub s Allowed: subs OK Speci al Instruct ion: TAKE 1 CAPSULE BY MOUTH 3 TIMES A DAY Medi cationGe nericNam e: gabapent in Not Available Not Available Not Available ergocalci ferol (vitamin D2) 1,250 mcg (50,000 unit) capsule TAKE 2 CAPSULES BY MOUTH WEEKLY active Not Available Not Available No t Available ibuprofen 600 mg tablet 10/17 completed Medicati on ID: [id number] B rand Name: ibuprofe n Send Method: E-Prescr ibed Sub s Allowed: subs OK Speci al Instruct ion: TAKE 1 TABLET BY MOUTH 3 TIMES A DAY NEEDED FOR PAIN Med icationG enericNa me: ibuprofe n Not Available Not Available Not Available albuterol sulfate HFA 90 mcg/actua tion aerosol inhaler INHALE 2 PUFFS EVERY 4 HOURS BY INHALATI ON ROUTE NEEDED 10/18 completed Not Available Not Available Not Available ketoconaz ole 2 % topical cream APPLY TWICE A DAY TO FEET active Not Available Not Available No t Available fluticaso ne propionat e 50 mcg/actua tion nasal spray,maggie pension SPRAY 1 SPRAY BY INTRANAS AL ROUTE EVERY DAY active Not Available Not Available No t Available ipratropi um bromide 21 mcg (0.03 %) nasal spray SPRAY 2 SPRAYS 3 TIMES A DAY BY INTRANAS AL ROUTE, FOR CHRONIC RHINITIS . active Not Available Not Available No t Available amoxicill in 875 mg-potass ium clavulana te 125 mg tablet 10/17 completed Medicati on ID: [id number] B rand Name: amoxicil arben-pot clavulan ate Send Method: E-Prescr ibed Sub s Allowed: subs OK Speci al Instruct ion: TAKE 1 TABLET BY MOUTH EVERY 12 HOURS FOR 7 DAYS Med icationG enericNa me: amoxicil arben-pot clavulan ate Not Available Not Available Not Available oxycodone 5 mg tablet 10/17 completed Medicati on ID: [id number] B rand Name: oxycodon e Send Method: E-Prescr ibed Sub s Allowed: subs OK Speci al Instruct ion: TAKE 1 TABLET BY MOUTH EVERY 6 HOURS NEEDED FOR SEVERE PAIN Med icationG enericNa me: oxycodon e Not Available Not Available Not Available valsartan 160 mg tablet 160 mg every 24 hours by oral route. active Not Available Not Available No t Available ciproflox acin 0.3 %-dexamet hasone 0.1 % ear drops,maggie pension INSTILL 4 DROPS TWICE A DAY BY OTIC ROUTE FOR 14 DAYS, FOR RIGHT OTITIS EXTERNA. active Not Available Not Available No t Available rosuvasta tin 20 mg tablet 10/17 completed Medicati on ID: [id number] B rand Name: rosuvast atin Sen d Method: E-Prescr ibed Sub s Allowed: subs OK Speci al Instruct ion: TAKE 1 TABLET BY MOUTH EVERY DAY Medi cationGe nericNam e: rosuvast atin Not Available Not Available Not Available bupropion HCl XL 300 mg 24 hr tablet, extended release 10/17 completed Medicati on ID: [id number] B rand Name: bupropio n HCl Send Method: E-Prescr ibed Sub s Allowed: subs OK Medic ationGen ericName : bupropio n HCl Not Available Not Available Not Available duloxetin e 30 mg capsule,d elayed release TAKE 1 CAPSULE BY MOUTH EVERY DAY WITH 60MG FOR TOTAL 90MG 10/18 completed Not Available Not Available Not Available duloxetin e 60 mg capsule,d elayed release 90 mg every day by oral route. 2024 active Not Available Not Available Not Avai lable metronida zole 1 % topical gel 10/18 completed Medicati on ID: [id number] B rand Name: metronid azole Se nd Method: E-Prescr ibed Sub s Allowed: subs OK Medic ationGen ericName : metronid azole Not Available Not Available Not Available aripipraz ole 2 mg tablet TAKE 1 TABLET BY MOUTH EVERY DAY 10/18 completed Not Available Not Available Not Available Symbicort 160 mcg-4.5 mcg/actua tion HFA aerosol inhaler INHALE 2 PUFFS TWICE A DAY USING SPACE. RINSE THROAT AND MOUTH AFTER USE active Not Available Not Available No t Available Symbicort 80 mcg-4.5 mcg/actua tion HFA aerosol inhaler 10/18 completed Medicati on ID: [id number] B rand Name: Symbicor t Send Method: E-Prescr ibed Sub s Allowed: subs OK Speci al Instruct ion: INAHLE 2 PUFFS BY MOUTH EVERY MORNING AND EVERY EVENING WITH SPACER, RINSE MOUTH AND THROAT AFTER Me dication GenericN harpreet: Symbicor t Not Available Not Available Not Available GaviLyte- G 236 gram-22.7 4 gram-6.74 gram-5.86 gram oral solution 10/17 completed Medicati on ID: [id number] B rand Name: GaviLyte -G Send Method: E-Prescr ibed Sub s Allowed: subs OK Speci al Instruct ion: 1 GLASS EVERY 15 30 MINUTES UNTIL FINISHED Medicat ionGener icName: GaviLyte -G Not Available Not Available Not Available Jakafi 15 mg tablet 10/17 completed Medicati on ID: [id number] B rand Name: Jakafi S end Method: E-Prescr ibed Sub s Allowed: subs OK Medic ationGen ericName : Jakafi Not Available Not Available Not Available Wixela Inhub 250 mcg-50 mcg/dose powder for inhalatio n INHALE 1 PUFF TWICE A DAY 10/18 completed Not Available Not Available Not Available Fluad Quad (65yr up)(PF) 60 mcg (15 mcg x 4)/0.5mL IM syringe 10/17 completed Medicati on ID: [id number] B rand Name: Fluad Quad ( 65y up)(PF) Send Method: E-Prescr ibed Sub s Allowed: subs OK Medic ationGen ericName : Fluad Quad ( 65y up)(PF) Not Available Not Available Not Available Ojjaara 200 mg tablet 200 mg every 24 hours by oral route. active Not Available Not Available No t Available Ojjaara 100 mg tablet 10/18 completed Not Available Not Available Not Available Voquezna 20 mg tablet 20 mg every 24 hours by oral route. active Not Available Not Available No t Available Vitals Date Recorded Body height Body mass index (BMI) Body weight Provider Name and Address Organization Details Last Updated DateTime 11/04/2024 167.64 cm 25.5 kg/m2 35114.59 g [place] [facility] 11/04/2024 09:06:54 Social History None recorded. Functional Status None recorded. Mental Status None recorded. Family History Relationship Description Onset Age of this Age Resolved Age Notes LastModified by Organization Details LastModified Time Paternal Grandfather Diabetes mellitus [email or web address] Not available 2024 09:06:59 Father Diabetes mellitus [email or web address] Not available 2024 09:06:59 Medical History Condition Response Allergies/Hayfever N Heart Problems N Anxiety N Tonsil Infections N Emphysema N Migraines N Thyroid Problems N Depression Y COPD N Developmental Delay N Glaucoma N Nasal or Sinus Problems N Anemia Y Immune System Disorder N Anesthesia Complications N Heart Attack ([place]) N Other Skin Condition Y Diabetes Y Rhinitis Y Bleeding Disorder N Food Allergy N Hearing Loss Y Arthritis Y Hyperlipidemia Y Cancer Y Stroke N Dementia N Nasal polyps N Asthma Y Sleep Disorder Y High Cholesterol N GERD/Reflux Y Liver Disease N Headaches N Fibromyalgia N Hypertension Y Speech Delay N Kidney Disease Y Past Encounters Encounter ID Performer Location Encounter Start Date Encounter Closed Date Diagnosis/Indication Diagnosis SNOMED-CT Code Diagnosis ICD10 Code Diagnosis Note [facility]CO TRIPP [facility] [address] [address] 05/31/2024 14:58:57 06/01/2024 07:35:51 Sensorineural hearing loss of bilateral ears 220502076 H90.3 [id number] RACHANA CLEMENTS MD [facility] [address] [address] 10/18/2024 10:36:48 10/18/2024 11:27:06 Acute infective otitis externa 966116627 H60.399 right Chronic rhinitis 0865063 6 J31.0 Sensorineu ral hearing loss of bilateral ears 673458830 H90.3 [id number] KANWAL TRAVIS MD [facility] [address] [place] [address] 11/04/2024 09:01:58 11/04/2024 09:19:15 Acute infective otitis externa 582707779 H60.399 right Sensorineu ral hearing loss of bilateral ears 439229659 H90.3 Health Concerns Section Related Observation LastModified by Organization Detai ls LastModified Time None Recorded Concern Status LastModified by Organization Details LastModified Time None Recorded Advance Directives Directive None Recorded Payers Encounter Date Sequence Insurance Name Policy Number Policy Cornell Covered Member ID Cornell Member ID Guarantor Name 05/31/2024 1 [facility] G[facility] Jus R Gnepp [id number] Jus R Gnepp 10/18/2024 1 [facility]: MEDICARE PPO BLUE (MEDICARE REPLACEMENT PPO) Jus R Gnepp [id number] Jus R Gnepp 11/04/2024 1 [facility]: MEDICARE PPO BLUE (MEDICARE REPLACEMENT PPO) Jus R Gnepp [id number] Jus R Gnepp Notes Date Note Type Note Provider Name and Address Organization Details Recorded Time 05/31/2024 text/html Still c/o difficulty hearing especially in noise but also in quiet. Cleaned and checked aids. Turned SR off. Increased dynamic noise cancellation in noise programs. Increased gain for mids. He will try these adjs and call if he would like additional adjs. I told him that it is not necessarily time for new aids but I did talk to him briefly about the Sphere technology. MARCO TRIPP [address] [facility],[place] [address], [place], [phone], [facility] 05/31/2024 15:03:12 10/18/2024 text/html 79-year-old male presents for evaluation of the ears. He reports mild right ear pain started 1 to 2 weeks ago with associated ear blockage and ear drainage. He also would like to discuss his chronic clear nasal drainage. This started 6 to 8 months ago and has improved with ipratropium bromide in the past. He denies frequent sneezing, facial itchiness, or constant nasal congestion. No history of seasonal allergies. RACHANA CLEMENTS MD 100 [facility],[address], [address], [facility] 10/18/2024 14:17:54 11/04/2024 text/html 79-year-old male presents for reevaluation of right otitis externa. He reports symptoms resolved with CiproDex. Denies ear pain, drainage, or hearing changes today. KANWAL TRAVIS MD [address] [facility] [address], [place], [address], [facility] 11/04/2024 16:52:05
== END 2024-11-22 15:16 | disposition home or self-care (01) ==
LOC: HO.HOS 14:12
PROVIDERS: PCP Family Medicine
DX: S62.633B Displaced fracture of distal phalanx of left middle finger, initial encounter for open fracture (principal); S61.213A Laceration without foreign body of left middle finger without damage to nail, initial encounter; S61.211A Laceration without foreign body of left index finger without damage to nail, initial encounter
CPT/HCPCS: 99213

== ENCOUNTER → 2024-11-22 14:13 | Outpatient (BNV) | payer MEDICARE, SELFPAY | PROVIDERS: Visit Provider Radiology Diagnostic Radiology | DX: M79.642 Pain in left hand (principal) | CPT/HCPCS: 73130 ==

== ENCOUNTER 2024-12-07 07:49 | Outpatient (REF) | payer MEDICARE, SELFPAY ==
--- NOTE | ~2024-12-07 | XR_ITS ---
EXAMINATION: XR HAND 3 OR MORE VIEWS LEFT HISTORY: M79.642 - Pain in left hand COMPARISON: Comparison is made with the prior examination dated 11/22/2024. FINDINGS: Three views of the left hand are submitted. Osseous mineralization is normal. Again seen is a fracture of the distal tuft of the middle finger. There is been no significant change in appearance. The joint spaces are preserved. The soft tissues are unremarkable. XR/XR hand LT min 3V IMPRESSION: Fracture of the distal tuft of the middle finger without change. Electronically signed by: Darion Serrano MD 12/08/2024 08:59 AM EDT
--- OUTSIDE RECORDS SUMMARY | 2024-12-07 07:53 | XMS_ITS | Encounter Summary ---
Author Organization [facility], Address [address] [place] [address] Phone Care Team Providers Care Director Chemistry Name Role Phone Crystal Lowry MD Primary Care Provider [phone] Encounter Details Date Type Department Care Team (Late st Contact Info) Description 04/28/2024 Documentation Only [facility], [address] [place] [phone] Juan Diego Gallo[place]ELL [place], [place] [address] [place] [phone] Social History Tobacco Use Types Packs/Day Years [...] on filedocumented in this encounter Care Teams Director Chemistry Relationship Specialty Start Date End Date Crystal Lowry MD [address] [place] [phone] PCP - General Family Medicine 04/28/24 documented as of this encounter
--- OUTSIDE RECORDS SUMMARY | 2024-12-07 07:53 | XMS_ITS | Clinical Summary ---
Author Organization [facility], Address [address] MICHAEL [address] [place] [phone] Phone Care Team Providers Care Small Wind Energy Installer Name Role Phone Crystal Lowry MD Primary Care Provider [phone] Allergies No known active allergies Medications allopurinol [...] MG CAP 4 Active ergocalciferol 1.25 MG (76535 UT) capsule TAKE 2 CAPSULES BY MOUTH [...] Due Date Last Done Comments Influenza Vaccine (Season Ended) 2025 05/05/2019 Pneumococcal Vaccine: 50+ Years Completed 03/05/2020, 01/27/2016, 09/15/2013, Additional history exists Hepatitis B Vaccine Aged Out No longe r eligible based on patient's age to complete this topic Insurance [facility] Care Teams Small Wind Energy Installer Relationship Specialty Start Date End Date Crystal Lowry MD [address] [place] [phone] PCP - General Family Medicine 04/28/24
--- OUTSIDE RECORDS SUMMARY | 2024-12-07 07:53 | XMS_ITS | Data Portability ---
Author Organization [place] [facility], Allergy Address [address] [address] Care Team Providers Care Rigging Up Man Name Role Phone DOMINGUEZANTONIO Primary Care Provider [...] 0.1 % ear drops,suspe nsion 2024 025 [facility]armacy #[id number], [address] [place], [address], 5 11:24:31 ipratropium bromide 21 mcg (0.03 %) nasal spray 2024 025 [facility]/Pharmacy #[id number], [address] [place], [address], 5 11:24:31 Patient TargetsNo targets recorded. Patient InstructionsNo instructions recorded. Reason for Referral None Reported. Problems Name Problem SNOMED Code Status Onset Date Resolution Date Notes Provider Name and Address Organization Details Recorded Time Impacted cerumen of bilateral ears [id number] 64250 Active 2020 Impacted cerumen, bilateral ; Note: Date Diagnosed : 11/13/2020 2:37 PM (H61.23) Not Available [facility] 4 03:21:55 Sensorine ural hearing loss of bilateral ears 940316230 Active 2020 Sensorine ural hearing loss, bilateral ; Note: Date Diagnosed : 11/13/2020 2:37 PM (H90.3) Not Available Critical [facility] hospital 4 03:21:55 Acute infective otitis externa 016622958 Active 2024 JOSEY GALLO PA-C 100 [facility],[place] [address], [place], [phone] , [place] [facility] 5 11:22:43 Anterior rhinorrhe a 091920765 Active 2024 JOSEY GALLO PA-C 100 [facility] 100, [place], [address] , [place] [facility] [place] 5 11:23:51 Vasomotor rhinitis 7689305 Active 2024 JOSEY GALLO PA-C 100 [facility] 100, [place], [address] , [place] [facility] [place] 5 11:24:02 Chronic rhinitis 46717895 Active 2024 JOSEY GALLO PA-C [address] [place] [address], [place], [address] , [place] [facility] 11:24:02 Problem Notes None recorded. Medical Equipment None Reported. Allergies No known drug allergies Medications Name Sig Start Date Stop Date Status Note LastModified by Organization Details LastModified Time acetamino phen 325 mg tablet 10/17 completed Medicati on ID: [id number] B rand Name: acetamin ophen Se nd [...] topical cream 10/17 completed Medicati on ID: [id number] B rand Name: fluorour acil Sen d [...] topical gel 10/18 completed Medicati on ID: [id number] B rand Name: clindamy pedro phosphat e [...] mg capsule 10/17 completed Medicati on ID: [id number] B rand Name: gabapent in Send Method: [...] mg tablet 10/17 completed Medicati on ID: [id number] B rand Name: ibuprofe n Send Method: [...] mg tablet 10/17 completed Medicati on ID: [id number] B rand Name: amoxicil arben-pot clavulan ate Send Method: E-Prescr ibed Sub s Allowed: subs OK Speci al Instruct ion: TAKE 1 TABLET BY MOUTH EVERY 12 HOURS FOR 7 DAYS Med icationG enericNa me: amoxicil arben-pot clavulan ate Not Available Not Available Not Available oxycodone 5 mg tablet 10/17 completed Medicati on ID: [id number] B rand Name: oxycodon e Send Method: [...] mg tablet 10/17 completed Medicati on ID: [id number] B rand Name: rosuvast atin Sen d Method: E-Prescr ibed Sub s Allowed: subs OK Speci al Instruct ion: TAKE 1 TABLET BY MOUTH EVERY DAY Medi cationGe nericNam e: rosuvast atin Not Available Not Available Not Available bupropion HCl XL 300 mg 24 hr tablet, extended release 10/17 completed Medicati on ID: [id number] B rand Name: bupropio n HCl Send [...] topical gel 10/18 completed Medicati on ID: [id number] B rand Name: metronid azole Se nd [...] aerosol inhaler 10/18 completed Medicati on ID: [id number] B rand Name: Symbicor t Send Method: E-Prescr ibed Sub s Allowed: subs OK Speci al Instruct ion: INAHLE 2 PUFFS BY MOUTH EVERY MORNING AND EVERY EVENING WITH SPACER, RINSE MOUTH AND THROAT AFTER Me dication GenericN harpreet: Symbicor t Not Available Not Available Not Available GaviLyte- G 236 gram-22.7 4 gram-6.74 gram-5.86 gram oral solution 10/17 completed Medicati on ID: [id number] B rand Name: GaviLyte -G Send Method: E-Prescr ibed Sub s Allowed: subs OK Speci al Instruct ion: 1 GLASS EVERY 15 30 MINUTES UNTIL FINISHED Medicat ionGener icName: GaviLyte -G Not Available Not Available Not Available Jakafi 15 mg tablet 10/17 completed Medicati on ID: [id number] B rand Name: Jakafi S end Method: [...] IM syringe 10/17 completed Medicati on ID: [id number] B rand Name: Fluad Quad ( 66y [...] Updated DateTime 11/04/2024 167.64 cm 25.5 kg/m2 20602.59 g [place] [facility] 11/04/2024 09:06:54 Social History None recorded. [...] Emphysema N Migraines N Thyroid Problems N Glaucoma N Depression Y COPD N Developmental Delay N Nasal or Sinus Problems N Anemia Y Immune System Disorder N Anesthesia Complications N Heart Attack (NC) N Other Skin Condition Y Diabetes Y Rhinitis Y Bleeding Disorder N Food Allergy N Arthritis Y Hearing Loss Y Hyperlipidemia Y Cancer Y Stroke N Dementia N Nasal polyps N Asthma Y High Cholesterol N Sleep Disorder Y GERD/Reflux Y Liver Disease N Headaches N Fibromyalgia N Hypertension Y Speech Delay N Kidney Disease Y Past Encounters Encounter ID Performer Location Encounter Start Date Encounter Closed Date Diagnosis/Indication Diagnosis SNOMED-CT Code Diagnosis ICD10 Code Diagnosis Note [facility]CO TR[facility] [address] [address] 05/31/2024 14:58:57 06/01/2024 07:35:51 Sensorineural hearing loss of bilateral ears 258627195 H90.3 [id number] RACHANA CLEMENTS MD [facility] [address] [address] 10/18/2024 10:36:48 10/18/2024 11:27:06 Acute infective otitis externa 507453706 H60.399 right Chronic rhinitis 7884568 6 J31.0 Sensorineu ral hearing loss of bilateral ears 904301398 H90.3 [id number] KANWAL TRAVIS MD [facility] [address] [place] [address] 11/04/2024 09:01:58 11/04/2024 09:19:15 Acute infective otitis externa 958489350 H60.399 right Sensorineu ral hearing loss of bilateral ears 998257946 H90.3 Health Concerns Section Related Observation LastModified by Organization Detai ls LastModified Time None Recorded Concern Status LastModified by Organization Details LastModified Time None Recorded Advance Directives Directive None Recorded Payers Encounter Date Sequence Insurance Name Policy Number Policy Cornell Covered Member ID Cornell Member ID Guarantor Name 05/31/[address] [facility] Jus R Gnepp [id number] Jus R Gnepp 10/18/2024 1 [facility]: MEDICARE PPO BLUE (MEDICARE REPLACEMENT PPO) Jus R Gnepp [id number] Jus R Gnepp 11/04/2024 1 [facility]: MEDICARE PPO BLUE (MEDICARE REPLACEMENT PPO) Jus R Gnepp [id number] Jus R Gnepp Notes Date Note [...] about the Sphere technology. MARCO TRIPP 100 [facility],[place] [address], [place], [address], [facility] - [facility] 05/31/2024 15:03:12 10/18/2024 text/html 79-year-old male [...] of seasonal allergies. RACHANA CLEMENTS MD 100 [facility],[address], [address], [facility] - [facility] 10/18/2024 14:17:54 11/04/2024 text/html 79-year-old male presents for reevaluation of right otitis externa. He reports symptoms resolved with CiproDex. Denies ear pain, drainage, or hearing changes today. KANWAL TRAVIS MD 100 [facility],[place] [address], [place], [address], [facility] - [facility] 11/04/2024 16:52:05
--- OUTSIDE RECORDS SUMMARY | 2024-12-07 07:53 | XMS_ITS | Encounter Summary ---
Author Organization [facility], Address [address] [place] [address] Phone Care Team Providers Care Sample Puller Name Role Phone Crystal Lowry MD Primary Care Provider [phone] Encounter Details Date Type Department Care Team (Late st Contact Info) Description 08/05/2024 Documentation Only [facility], [address] [place] [phone] Shelli Trevino [address] [place] [phone] Social History Tobacco Use Types Packs/Day Years [...] on filedocumented in this encounter Care Teams Sample Puller Relationship Specialty Start Date End Date Crystal Lowry MD [address] [place] [phone] PCP - General Family Medicine 04/28/24 documented as of this encounter
--- OUTSIDE RECORDS SUMMARY | 2024-12-07 07:53 | XMS_ITS | Clinical Summary ---
Author Organization [facility] Address [address] [place] [address] Care Team Providers Care Fleet Coordinator Name Role Phone Unavailable Primary Care Provider [...] so, obtain the minor's consent prior to disclosure.[facility] Immunizations Immunization Administration Dates Next Due [...]
== END 2024-12-07 07:50 | disposition home or self-care (01) ==
LOC: HO.HOSX 07:49
DX: M79.642 Pain in left hand (principal); S62.633B Displaced fracture of distal phalanx of left middle finger, initial encounter for open fracture; S61.213A Laceration without foreign body of left middle finger without damage to nail, initial encounter; S61.211A Laceration without foreign body of left index finger without damage to nail, initial encounter; W27.0XXA Contact with workbench tool, initial encounter; Y93.H3 Activity, building and construction; Y92.009 Unspecified place in unspecified non-institutional (private) residence as the place of occurrence of the external cause; Y99.9 Unspecified external cause status
CPT/HCPCS: 73130; 99212

== ENCOUNTER 2024-12-07 13:16 | Outpatient (AMB) | payer MEDICARE, SELFPAY ==
--- NOTE | 2024-12-07 13:35 | MHC.OFFVIS ---
Vital Signs 12/07/24 13:41 Height 5 ft 6 in Weight 156 lb BMI 25.2 Handedness Right Intake Visit Reasons: OV- Left MF fx, LT IF lac DOI 11/02/24 Intake Note: Jus is a 79 year old right hand dominant male who presents today for a follow up and wound check for his open fracture of distal phalanx of left middle finger, laceration of left middle and left index finger s/p table saw injury DOI: 11/02/24. Patient reports he has been working on gentle finger ROM at home and expresses he still feels stiffness in the left middle finger. He says he ruptured his tendon in the left middle finger years ago so he had some stiffness before the injury. Reports he still has sensitivity at his finger tips, left MF the most. He continues to wrap his left middle finger to avoid banging it up due to sensitivity. Allergies No Known Allergies Allergy (Verified 12/07/24 13:37) HPI HPI OV- Left MF fx, LT IF lac DOI 11/02/24: Details: Jus is a 79 year old right hand dominant male who presents today for a follow up and wound check for his open fracture of distal phalanx of left middle finger, laceration of left middle and left index finger s/p table saw injury DOI: 11/02/24. Patient reports he has been working on gentle finger ROM at home and expresses he still feels stiffness in the left middle finger. He says he ruptured his tendon in the left middle finger years ago so he had some stiffness before the injury. Reports he still has sensitivity at his finger tips, left MF the most. He continues to wrap his left middle finger to avoid banging it up due to sensitivity. 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 Review of Systems Const All systems reviewed & are unremarkable except as noted in HPI and below Physical Exam Vital Signs: BMI result Body Mass Index 25.2 Const General: cooperative, healthy appearing and no acute distress Orientation/consciousness: patient oriented x3 HEENT Head: Yes normocephalic and Yes atraumatic Eyes EOM: EOMs intact bilaterally Resp Effort & Inspection: normal respiratory effort and able to speak in complete sentences Cardio Jugular venous distension: no JVD Skin General skin exam: turgor normal Rashes: no rashes Neuro General: patient oriented x3 Extrem Other: Evaluation of Left Upper Extremity: The patient is alert, oriented, and in no acute distress Table saw injury to the ulnar tip of the left middle finger. He is missing some of the distal and ulnar aspect of the nail plate and presumably the nail bed. The wound is closed and well healed Regarding the left index finger he has a 1.2 cm transverse laceration at the tip of the index finger, well healed. No nail involvement Cap refill appears to be brisk. He had some mild stiffness, but was able to bring his fingers close to a fist and back into extension in clinic. He does have an old mallet deformity to the middle finger. This is not something caused by this injury. Psych Appearance: grossly normal Affect: normal affect Attitude: cooperative Assessment & Plan Assessment & Plan (1) Open fracture of distal phalanx of left middle finger: Code(s): S62.633B - Displaced fracture of distal phalanx of left middle finger, initial encounter for open fracture Category: Medical (2) Laceration of left middle finger: Code(s): S61.213A - Laceration without foreign body of left middle finger without damage to nail, initial encounter Category: Medical (3) Laceration of left index finger: Code(s): S61.211A - Laceration without foreign body of left index finger without damage to nail, initial encounter Category: Medical Plan Assessment & Plan: 1. Left middle finger distal phalanx ulnar tuft fracture, open From a tablesaw injury, DOI: 11/02/24 Sutured in ED same day 2. Left index fingertip laceration, From a tablesaw injury, DOI: 11/02/24 Sutured in ED same day I educated him about these conditions I explained the signs and symptoms of infection, if the patient develops any new or worsening erythema, drainage, pain, or warmth they should contact the clinic or attend the ED. I discussed wound care, he can continue washing with soap and water in the sink or the shower, can also begin submerging as the wounds appear well closed and well healed He will perform gentle ROM exercises at home Patient was advised he can begin under water activities at this time Follow-up in 4 weeks for reassessment, sooner with any acute concerns Orders: Orders XR hand LT min 3V Today M79.642 - Pain in left hand Coding Level of Care Code Global (78338) Diagnoses Open fracture of distal phalanx of left middle finger S62.633B Laceration of left middle finger S61.213A Laceration of left index finger S61.211A
[2024-12-07 13:41] VITALS: BMI 25.2
--- OUTSIDE RECORDS SUMMARY | 2024-12-07 15:43 | XMS_ITS | Encounter Summary ---
Author Organization [facility], Address [address] [place] [address] Phone Care Team Providers Care Building Maintenance Supervisor Name Role Phone Crystal Lowry MD Primary Care Provider [phone] Encounter Details Date Type Department Care Team (Late st Contact Info) Description 04/28/2024 Documentation Only [facility], [address] [place] [phone] [place], [place] [address] [place] [phone] Social History Tobacco Use Types Packs/Day Years [...] on filedocumented in this encounter Care Teams Building Maintenance Supervisor Relationship Specialty Start Date End Date Crystal Lowry MD [address] [place] [phone] PCP - General Family Medicine 04/28/24 documented as of this encounter
--- OUTSIDE RECORDS SUMMARY | 2024-12-07 15:43 | XMS_ITS | Clinical Summary ---
Author Organization [facility] [place], Address [address] MICHAEL [address] [place] [phone] Phone Care Team Providers Care Rent Collector Name Role Phone Crystal Lowry MD Primary Care Provider [phone] Allergies No known active allergies Medications allopurinol [...] MG CAP 4 Active ergocalciferol 1.25 MG (23037 UT) capsule TAKE 2 CAPSULES BY MOUTH [...] patient's age to complete this topic Insurance [facility] Care Teams Rent Collector Relationship Specialty Start Date End Date Crystal Lowry MD [address] [place] [phone] PCP - General Family Medicine 04/28/24
--- OUTSIDE RECORDS SUMMARY | 2024-12-07 15:43 | XMS_ITS | Clinical Summary ---
Author Organization [facility] Address [address] [place] [address] Care Team Providers Care Stone Engraver Name Role Phone Unavailable Primary Care Provider [...] so, obtain the minor's consent prior to disclosure.[facility] Immunizations Immunization Administration Dates Next Due [...]
--- OUTSIDE RECORDS SUMMARY | 2024-12-07 15:43 | XMS_ITS | Encounter Summary ---
Author Organization [facility] [place], Address [address] [place] [address] Phone Care Team Providers Care Infection Control Rn Name Role Phone Crystal Lowry MD Primary Care Provider [phone] Encounter Details Date Type Department Care Team (Late st Contact Info) Description 08/05/2024 Documentation Only [facility], [address] [place] [phone] Shelli Trevino [address] [place] [phone] Social History Tobacco Use Types Packs/Day Years [...] on filedocumented in this encounter Care Teams Infection Control Rn Relationship Specialty Start Date End Date Crystal Lowry MD [address] [place] [phone] PCP - General Family Medicine 04/28/24 documented as of this encounter
== END 2024-12-07 13:58 | disposition home or self-care (01) ==
LOC: HO.HOS 13:16
DX: S62.633B Displaced fracture of distal phalanx of left middle finger, initial encounter for open fracture (principal); S61.213A Laceration without foreign body of left middle finger without damage to nail, initial encounter; S61.211A Laceration without foreign body of left index finger without damage to nail, initial encounter
CPT/HCPCS: 99213

== ENCOUNTER → 2024-12-07 13:22 | Outpatient (BNV) | payer MEDICARE, SELFPAY | PROVIDERS: Visit Provider Radiology Diagnostic Radiology | DX: S62.633A Displaced fracture of distal phalanx of left middle finger, initial encounter for closed fracture (principal) | CPT/HCPCS: 73130 ==

== ENCOUNTER 2024-12-28 14:02 | Outpatient (RCR) | payer MEDICARE, SELFPAY ==
--- NOTE | 2024-12-16 14:26 | MHC.OT.EP ---
[address] [phone] Occupational Therapy Plan of Care Patient Name: Jus Keita Date of Evaluation: 12/16/24 Diagnosis: L MIDDLE FINGER LACERATION Pain Location: L MIDDLE AND INDEX FINGERS PAINFREE AT REST; 4-5/10 WITH BUMPING MF > IF Pain Score: 0-4/10 Pain Scale Used: Numeric (0 - 10) Aggravating Factors: BUMPING DIGIT ON SURFACES, RUBBING AGAINST ITEMS Alleviating Factors: NOT USING HEAT/ICE OR MEDICATION Assessment: MR KEITA IS ABOUT S[age] WEE[age] S/P LACERATION OF L MIDDLE AND INDEX FINGERS, AND OPEN DISTAL PHALANX FRACTURE OF L MF DUE TO A TABLE SAW INJURY. HE HAS IMPROVING ROM AND STRENGTH OF HIS NON DOMINANT L HAND, YET CONTINUES TO COMPENSATE AND AVOID USE DURING BIMANUAL TASKS. HE REPORTS SENSITIVITIES AT TIP OF MF AND IF, PARTICULARY IF HE BUMPS INTO ITEMS. ADDITIONALLY, HE HAS AN OLD MALLET FINGER INJURY OF HIS L MF FROM ABOUT FOUR YEARS AGO. A NINE PERCENT LIMITAITON WAS REPORTED PER THE QUICK DASH ASSESSMENT. A BRIEF COURSE OF OT IS WARRANTED TO ACHIEVE MAXIMUM FUNCTIONAL LEVEL. Frequency and Duration: The patient will be seen 2X/WEEK FOR 2 WEEKS Short Term Goals: IND HEP TOLERATE 8 MINUTES OF ROUGH/ VIBRATION TEXTURES ENGAGE IN IADLs WITH <2/10 PAIN IND JOINT PROTECTION STRATEGIES Manager Medical Writing Goals: SEE ABOVE Treatment Plan: Therapeutic Exercise Therapeutic Activity Home Exercise Program Splinting Neuro Re-ed Patient Education Desensitization/Sensory Re-ed Edema Control ADL Training Ultrasound Paraffin Fluidotherapy MHP Cold Packs Joint Mobilization Soft Tissue Mobilization Kinesiotaping Electronically Signed By: CORINNA CHEEMA/Pardeep Please Sign and return to therapist. Thank you once again for your referral.
--- NOTE | 2024-12-28 15:21 | MHC.OT.DC ---
[address] [phone] F: [phone] Occupational Therapy Discharge Note Patient Name: Jus Keita Provider: Roque Aviles Diagnosis: L MIDDLE FINGER LACERATION Date of Evaluation: 12/16/24 Date of Discharge: 12/28/24 Treatments to Date: 5 Cancellations to Date: 0 No Shows to Date: 0 Discharge Status: Achieved Goals Improved Function Independent with HEP Discharge Summary: MR KEITA HAS PROGRESSED WELL WITH HIS OT RX SESSIONS. HE IS IND WITH HIS HEP. HIS FISH TENDER STRENGTH AND PAIN HAVE IMPROVED THROUGHOUT BRIEF COURSE OF OT. IND WITH DESENSITIZATION STRATEGIES AND ABLE TO CARRYOVER AT HOME. HE IS READY TO TRANSITION TO A HOME BASED PROGRAM. D/C OT. Electronically Signed By: CORINNA CHEEMA/Pardeep Reviewed/agree with student documentation: N/A Therapist: Please Sign and return to therapist, thank you for your referral.
== END 2024-12-28 15:20 | disposition home or self-care (01) ==
LOC: HO.OT 14:02
PROVIDERS: PCP Family Medicine
DX: S62.633D Displaced fracture of distal phalanx of left middle finger, subsequent encounter for fracture with routine healing (principal); S61.211D Laceration without foreign body of left index finger without damage to nail, subsequent encounter; S61.213D Laceration without foreign body of left middle finger without damage to nail, subsequent encounter
CPT/HCPCS: 97035; 97110; 97112; 97140; 97165; 97530